=== PATIENT | male | born 1995 | race Two or more races ===

== ENCOUNTER 2021-11-21 19:34 | Emergency (ER) | payer OTHER ==
[~2021-11-21] VITALS: Ht 182.9 cm; Wt 127.3 kg
[2021-11-21] MEDS ORDERED: IV NORMAL SALINE 1000ML BAG 1,000 ML IV ONE (20:30)
--- NOTE | 2021-11-21 20:38 | PHYS DOC ---
Past Medical History Past Surgical History: No Surgical History General Adult EDM: Chief Complaint: DENTAL PROBLEM HPI: HPI: Patient is a 26-year-old male who presents to the emergency department for left lower molar dental pain with fevers, nausea, vomiting that started today. Patient reports that he had a tooth pulled by a dentist in [facility] yesterday. He reports that they gave him Tylenol for pain and an antibiotic. Patient rates pain 8 out of 10. Review of Systems: Review of Systems: Constitutional: See HPI HENT: See HPI GI: See HPI Heart Score: C/O Chest Pain: N/A Risk Factors: Risk Factors: DM, Current or recent (<one month) smoker, HTN, HLP, family history of CAD, obesity. Risk Scores: Score 0 - 3: 2.5% MACE over next 6 weeks - Discharge Home Score 4 - 6: 20.3% MACE over next 6 weeks - Admit for Clinical Observation Score 7 - 10: 72.7% MACE over next 6 weeks - Early Invasive Strategies Allergies: Allergies: Allergies Coded Allergies Type Severity Reaction Last Updated Verified cephalexin Allergy Intermediate Unknown 11/21/21 Yes Physical Exam: PE: Constitutional: Well developed, well nourished, no acute distress, non-toxic appearance. [] HENT: Normocephalic, atraumatic, bilateral external ears normal, oropharynx moist, 18th tooth missing with surrounding redness,uvula midline, no trismus, no phonation changes, patient maintaining secretions, no oral exudates, nose normal. [] Eyes: PERRL, EOMI, conjunctiva normal, no discharge. [] Neck: Normal range of motion, no tenderness, supple, no stridor. [] Cardiovascular:Heart rate regular rhythm, no murmur [] Lungs & Thorax: Bilateral breath sounds clear to auscultation [] Abdomen: soft and flat Skin: Warm, dry, no erythema, no rash. [] Back: Normal ROM Extremities: No tenderness, no cyanosis, no clubbing, ROM intact, no edema. [] Neurologic: Alert and oriented X 3, normal motor function, normal sensory function, no focal deficits noted. [] Psychologic: Affect normal, judgement normal, mood normal. [] Current Patient Data: Vital Signs: Vital Signs Date Time Temp Pulse Resp B/P (MAP) Pulse Ox O2 Delivery O2 Flow Rate FiO2 11/21/21 20:00 101.8 107 18 177/82 (113) 94 Room Air 101.8 EKG: EKG: [] Radiology/Procedures: Radiology/Procedures: []PROCEDURE: CT MAXILLOFACIAL WO CONTRAST Exam: CT maxillofacial without contrast INDICATION: Tooth pole, pain, swelling TECHNIQUE: Sequential axial images through the face obtained without IV contrast. Sagittal and coronal reformatted images were reconstructed from the axial data and reviewed. Exposure: One or more of the following in the visualized dose reduction techniques were utilized for this examination: 1. Automated exposure control 2. Adjustment of the MA and/or KV according to patient size 3. Use of iterative of reconstructive technique Comparisons: None FINDINGS: Visualized intracranial structures are unremarkable. Globes and orbital contents are normal. Visual is portions of the paranasal sinuses and mastoid air cells are well-pneumatized. Postoperative changes of removal of the left second mandibular molar. Small amount of loculated air noted at the removal site could relate to packing material. No discrete fluid collection is identified. There is minimal stranding in the subcutaneous fat of the left cheek overlying this region. Dental caries involving the left and right third maxillary molars and the right mandibular first premolar, second premolar and first molar. No acute fractures seen. IMPRESSION: Postoperative changes with removal of the left mandibular second molar with small amount of flocculent material in the removal back, may relate to packing material. Correlate with direct visualization. No discrete fluid collection is identified however evaluation is limited on postcontrast study. Electronically signed by: Elida Mckay MD (11/21/2021 9:07 PM) [facility] DICTATED and SIGNED BY: ELIDA MCKAY MD DATE: 11/21/212056 Course & Med Decision Making: Course & Med Decision Making Pertinent Labs and Imaging studies reviewed. (See chart for details) Patient presents to the emergency department with dental pain, fevers, nausea and vomiting after getting his tooth removed in [place] yesterday. Work up consisted of blood work, lactic acid, blood cultures. CT maxillofacial performed. He was treated with IVF, tylenol and pain medication. Following treatment, he reports that his pain has improved. Abscess was seen on CT scan of maxillofacial. Unremarkable CBC, CMP and lactic. Patient is able to tolerate oral intake. Patient is advised to continue taking the antibiotic as prescribed. He will be discharged home with pain medication. He is advised to follow-up with a dentist at the [facility] soon as possible. I discussed with patient all findings and diagnostic testing as well as the need to follow-up with PCP for further evaluation and treatment or return to the ER if any new or worsening symptoms. Strict return precautions were also discussed at length. Patient voiced understanding and agreement with the plan. Patient is hemodynamically stable at the time of disposition. Dragon Disclaimer: Dragon Disclaimer: This electronic medical record was generated, in whole or in part, using a voice recognition dictation system. Departure Departure Impression: Primary Impression: Pain, dental Disposition: HOME / SELF CARE / HOMELESS Condition: GOOD Patient Instructions: Dental Pain Additional Instructions: You were seen in the emergency department today for dental pain. It does not appear that you have a dental abscess. You are being discharged home with pain medication that you can take as needed for severe pain. This medication may cause sedation so do not take when you need to be alert. Do not take this medication with any other sedating substances. Please make sure that you are taking the antibiotic as prescribed. Please follow-up with the dentist as soon as possible. Return to the emergency department if you develop worsening of your pain, intractable vomiting, high fevers refractory to treatment, weakness/lethargy, inability to maintain secretions. Scripts Hydrocodone Bit/Acetaminophen (HYDROCODONE-APAP 5-325 ) 1 Tab Tablet 1 TAB PO PRN Q6HRS PRN for PAIN for 2 Days, #8 TAB 0 Refills Prov: JAMES RAMOS APRN 11/21/21 JAMES RAMOS APRN Nov 21, 2021 20:38
[2021-11-21] MEDS ORDERED: ACETAMINOPHEN 500 MG TABLET PO ONE (20:45)
--- NOTE | 2021-11-21 21:09 | RAD ---
Exam: CT maxillofacial without contrast INDICATION: Tooth pole, pain, swelling TECHNIQUE: Sequential axial images through the face obtained without IV contrast. Sagittal and barney l reformatted images were reconstructed from the axial data and reviewed. Exposure: One or more of the following in the visualized dose reduction techniques were utilized for this examination: 1. Automated exposure control 2. Adjustment of the MA and/or KV according to patient size 3. Use of iterative of reconstructive technique Comparisons: None FINDINGS: Visualized intracranial structures are unremarkable. Globes and orbital contents are normal. Visual i s portions of the paranasal sinuses and mastoid air cells are well-pneumatized. Postoperative changes of removal of the left second mandibular molar. Small amount of loculated air n oted at the removal site could relate to packing material. No discrete fluid collection is identified . There is minimal stranding in the subcutaneous fat of the left cheek overlying this region. Dental caries involving the left and right third maxillary molars and the right mandibular first premolar, s econd premolar and first molar. No acute fractures seen. IMPRESSION: Postoperative changes with removal of the left mandibular second molar with small amount of flocculen t material in the removal back, may relate to packing material. Correlate with direct visualization. No discrete fluid collection is identified however evaluation is limited on postcontrast study. Electronically signed by: Elsa Rosa MD (11/21/2021 9:07 PM) [facility]
[2021-11-21 21:50] LABS: BASO % 0 % (0-3); EOS # 0.1 x10^3/uL (0.0-0.7); EOS % 1 % (0-3); HEMATOCRIT 46.1 % (39.0-53.0); HEMOGLOBIN 15.3 g/dL (13.0-17.5); LYMPH # 0.9 x10^3/uL (1.0-4.8); LYMPH % 10 % (24-48); MEAN CORPUSCULAR HEMOGLOBIN 29 pg (25-35); MEAN CORPUSCULAR HGB CONC 33 g/dL (31-37); MEAN CORPUSCULAR VOLUME 87 fL (79-100); MONO # 0.9 x10^3/uL (0.0-1.1); MONO % 9 % (0-9); NEUT # 7.9 x10^3/uL (1.8-7.7); NEUT % 81 % (31-73); PLATELET COUNT 203 x10^3/uL (140-400); RED BLOOD COUNT 5.33 x10^6/uL (4.30-5.70); WHITE BLOOD COUNT 9.8 x10^3/uL (4.0-11.0)
[2021-11-21 21:59] LABS: CALCIUM 9.1 mg/dL (8.5-10.1); CREATININE 1.1 mg/dL (0.7-1.3); GFR 80.3; POTASSIUM 3.9 mmol/L (3.5-5.1)
[2021-11-21] MEDS ORDERED: fentaNYL PF VIAL 100 MCG/2 ML VIAL IVP ONE (22:00)
[2021-11-21 22:05] LABS: ALBUMIN 4.4 g/dL (3.4-5.0); ALBUMIN/GLOBULIN RATIO 1.1 (1.0-1.7); TOTAL BILIRUBIN 2.8 mg/dL (0.2-1.0); TOTAL PROTEIN 8.4 g/dL (6.4-8.2)
[2021-11-21] MEDS ORDERED: HYDR-2761 PO (22:24)
[2021-11-21] MEDS ORDERED: ONDANSETRON PF 4 MG/2 ML VIAL. IVP ONE (22:30)
[2021-11-21 23:02] VITALS: BP 129/74
== END 2021-11-21 23:03 | disposition home or self-care (01) ==
LOC: ER 19:34 → EEVIPCON 19:34 → ER 23:03
DX: K08.89 Other specified disorders of teeth and supporting structures (principal); R50.9 Fever, unspecified; R11.2 Nausea with vomiting, unspecified; Z88.1 Allergy status to other antibiotic agents
CPT/HCPCS: 36415; 70486; 80053; 83605; 85025; 96361; 96374; 96375; 99284; J2405; J3010; J7030